=== PATIENT | female | born 2005 | race Caucasian/White ===

== ENCOUNTER 2023-08-05 00:55 | Emergency (ER) | payer OTHER ==
[2023-08-05 01:15] VITALS: BP 122/78; O2SAT 100
[2023-08-05] MEDS: LIDOCAINE 1% 2 ML VIAL SUBQ STA (01:36)
--- NOTE | 2023-08-05 02:24 | ED Physician Documentation ---
PD HPI SKIN - Stated complaint Stated Complaint: L HAND INJ - Chief complaint Chief Complaint: Laceration - History obtained from History obtained from: Patient - Additional information Additional information: 16yF presents with laceration of hand from kitchen knife. no other injuries. L hand injury. patient is R hand dominant PD PAST MEDICAL HISTORY - Past Medical History Past Medical History: No Cardiovascular: None Respiratory: None Neuro: None Endocrine/Autoimmune: None GI: None MAT GAUGER: None : None HEENT: None Psych: None Musculoskeletal: None Derm: None - Past Surgical History Past Surgical History: No - Present Medications Home Medications: Ambulatory Orders Medication Instructions Recorded Confirmed No Known Home Medications 08/05/23 08/05/23 - Allergies Allergies/Adverse Reactions: Allergies Allergy/AdvReac Type Severity Reaction Status Date / Time amoxicillin Allergy Hives Verified 08/05/23 01:08 Penicillins Allergy Hives Verified 08/05/23 01:08 - Social History Does the pt smoke?: No Smoking Status: Never smoker Does the pt drink ETOH?: No Does the pt have substance abuse?: No - Immunizations Immunizations are current?: Yes Immunizations: TDAP current <10years, Other immun current - POLST Patient has POLST: No PD ED PE NORMAL - Vitals Vital signs reviewed: Yes - General General: Alert and oriented X 3, No acute distress, Well developed/nourished - HEENT HEENT: Atraumatic, PERRL, EOMI - Derm Derm: Normal color, Warm and dry, Other (1cm laceration of thenar eminence of L hand without muscle or tendon involvement) Results - Vitals Vitals: Vital Signs - 24 hr 08/05/23 01:05 Temperature 36.5 C Heart Rate 95 Respiratory 16 Rate Blood Pressure 122/78 O2 Saturation 100 Oxygen O2 Source Room air Procedures - Laceration (location) Hand left Length in cm: 1 Wound type: Linear, Clean Neurovascular status: Sensory intact, Motor intact, Vascular intact Tendon involvement: Tendon intact Anesthesia: Lidocaine 1% Wound preparation: Irrigated copiously NS, Wound explored, To the base Skin layer closure: Nylon, Interrupted, Size #-0 - enter number (4), Sutures - enter # (1) Other: Patient tolerated well, No complications, Dressing applied, Tetanus UTD PD Medical Decision Making - ED course ED course: 17-year-old GIRL presented with simple laceration of left hand with kitchen knife tonight. Tetanus is up-to-date. Laceration repaired with 1 suture without complication. Return precautions given. She will have stitches removed in 14 days. Departure - Departure Disposition: 01 Home, Self Care Clinical Impression: Laceration of hand Condition: Stable Instructions: ED Laceration Hand Comments: You were seen in the emergency department for Laceration of the hand. 1 stitch was placed that needs to be removed in 14 days. Please follow-up with walk in clinic and return to the emergency department if you have any new or worsening symptoms or other concerns.
== END 2023-08-05 02:25 | disposition home or self-care (01) ==
LOC: ED 00:55
DX: S61.412A Laceration without foreign body of left hand, initial encounter (principal); W26.0XXA Contact with knife, initial encounter; Y93.89 Activity, other specified; Y92.000 Kitchen of unspecified non-institutional (private) residence as the place of occurrence of the external cause
CPT/HCPCS: 12001; 99282